=== PATIENT | male | born 1940 | race Caucasian/White ===

== ENCOUNTER 2023-06-14 20:45 | Emergency (ER) | payer MEDICARE, BC ==
[2023-06-14 21:31] LABS: BASOPHILS ABSOLUTE AUTO 0.09 K/uL (0.00-0.10); BASOPHILS PERCENT AUTO 1.4 % (0.1-1.3); EOSINOPHILS ABSOLUTE AUTO 0.38 K/uL (0.00-0.40); EOSINOPHILS PERCENT AUTO 5.9 % (0.0-5.4); HEMATOCRIT 36.8 % (38.4-49.7); HEMOGLOBIN 12.4 g/dL (12.9-16.9); IMMATURE GRAN PERCENT AUTO 0.2 % (0.0-0.7); LYMPHOCYTES ABSOLUTE AUTO 1.07 K/uL (0.8-3.3); LYMPHOCYTES PERCENT AUTO 16.5 % (11.4-47.7); MEAN CORPUSCULAR HEMOGLOBIN 31.8 pg (31.6-35.5); MEAN CORPUSCULAR HGB CONC 33.7 g/dL (31.6-35.5); MEAN CORPUSCULAR VOLUME 94.4 fL (81.4-99.0); MONOCYTES ABSOLUTE AUTO 0.58 K/uL (0.20-0.90); NEUTROPHILS ABSOLUTE AUTO 4.34 K/uL (1.0-7.6); PLATELET COUNT,PLT 166 K/uL (130-375); WHITE BLOOD CELL COUNT,WBC 6.5 K/uL (3.2-11.0)
[2023-06-14 21:36] LABS: IMMATURE GRAN ABSOLUTE AUTO 0.01 K/uL (0.00-0.23)
[2023-06-14 21:54] LABS: ALANINE AMINOTRANSFERASE,ALT 23 U/L (12-78); ALKALINE PHOSPHATASE 84 U/L (46-116); ANION GAP 12.5 mmol/L (5.0-14.0); ASPARTATE AMNIOTRANSFERASE,AST 19 U/L (15-37); BILIRUBIN TOTAL 0.5 mg/dL (0.2-1.0); BLOOD UREA NITROGEN,BUN 19 mg/dL (7-18); CALCIUM 7.8 mg/dL (8.5-10.1); CARBON DIOXIDE,CO2 27 mmol/L (21-32); CHLORIDE,CL 102 mmol/L (100-108); CREATININE 1.2 mg/dL (0.8-1.3); EST CRCL DRUG DOSING (CG) 47.46 mL/min; ESTIMATED GFR 60 mL/min (>60); GLUCOSE RANDOM 253 mg/dL (74-106); POTASSIUM,K 3.5 mmol/L (3.6-5.2); PROTEIN TOTAL,TP 5.9 g/dL (6.4-8.2); SODIUM,NA 138 mmol/L (140-148)
== END 2023-06-15 07:07 | disposition home or self-care (01) ==
LOC: JP.ED 20:45
DX: Z04.89 Encounter for examination and observation for other specified reasons (principal); Z87.891 Personal history of nicotine dependence; Z79.82 Long term (current) use of aspirin
CPT/HCPCS: 36415; 80053; 85025; 99283; 99285

== ENCOUNTER 2023-07-14 06:01 | Emergency (ER) | payer MEDICARE, BC ==
[2023-07-14 06:59] LABS: BASE EXCESS VENOUS 2.4 mm/L; BICARBONATE,VENOUS 27.7 mmol/L; CARBOXYHEMOGLOBIN 1.7 % (0.0-1.6); METHEMOGLOBIN 1.1 %; O2 SATURATION VENOUS 56.8; OXYHEMOGLOBIN 55.2 %; PCO2 VENOUS 47.9 mm/Hg; TOTAL HEMOGLOBIN 12.6 g/dL (13.5-18.0)
[2023-07-14 07:00] LABS: BASOPHILS ABSOLUTE AUTO 0.09 K/uL (0.00-0.10); BASOPHILS PERCENT AUTO 1.3 % (0.1-1.3); EOSINOPHILS ABSOLUTE AUTO 0.72 K/uL (0.00-0.40); EOSINOPHILS PERCENT AUTO 10.1 % (0.0-5.4); HEMATOCRIT 34.6 % (38.4-49.7); HEMOGLOBIN 11.9 g/dL (12.9-16.9); IMMATURE GRAN PERCENT AUTO 0.3 % (0.0-0.7); LYMPHOCYTES ABSOLUTE AUTO 1.16 K/uL (0.8-3.3); LYMPHOCYTES PERCENT AUTO 16.2 % (11.4-47.7); MEAN CORPUSCULAR HEMOGLOBIN 31.7 pg (31.6-35.5); MEAN CORPUSCULAR HGB CONC 34.4 g/dL (31.6-35.5); MEAN CORPUSCULAR VOLUME 92.3 fL (81.4-99.0); MONOCYTES PERCENT AUTO 8.4 % (3.3-12.6); NEUTROPHILS ABSOLUTE AUTO 4.56 K/uL (1.0-7.6); NEUTROPHILS PERCENT AUTO 63.7 % (40.0-78.1); PLATELET COUNT,PLT 180 K/uL (130-375); RED BLOOD CELL COUNT 3.75 M/uL (4.14-5.76); WHITE BLOOD CELL COUNT,WBC 7.2 K/uL (3.2-11.0)
[2023-07-14 07:04] LABS: IMMATURE GRAN ABSOLUTE AUTO 0.02 K/uL (0.00-0.23)
[2023-07-14 07:19] LABS: A/G RATIO 1.1 (1.2-2.2); ALANINE AMINOTRANSFERASE,ALT 26 U/L (12-78); ALKALINE PHOSPHATASE 93 U/L (46-116); ASPARTATE AMNIOTRANSFERASE,AST 22 U/L (15-37); BILIRUBIN TOTAL 0.6 mg/dL (0.2-1.0); BLOOD UREA NITROGEN,BUN 17 mg/dL (7-18); CALCIUM 7.9 mg/dL (8.5-10.1); CARBON DIOXIDE,CO2 29 mmol/L (21-32); CHLORIDE,CL 105 mmol/L (100-108); CREATININE 1.1 mg/dL (0.8-1.3); EST CRCL DRUG DOSING (CG) 54.92 mL/min; ESTIMATED GFR 67 mL/min (>60); GLUCOSE RANDOM 225 mg/dL (74-106); POTASSIUM,K 3.1 mmol/L (3.6-5.2); PROTEIN TOTAL,TP 5.7 g/dL (6.4-8.2); SODIUM,NA 140 mmol/L (140-148)
[2023-07-14 07:21] LABS: ANION GAP 9.1 mmol/L (5.0-14.0)
[2023-07-14] MEDS ORDERED: Thiamine 100 MG Tab PO ONE (07:23)
[2023-07-14] MEDS ORDERED: Multivitamins with Iron/Calcium/Folic Acid/Minerals Tab PO ONE (07:23)
[2023-07-14] MEDS ORDERED: Folic Acid 1 MG Tab PO ONE (07:23)
[2023-07-14] MEDS ORDERED: Potassium Chloride 20 MEQ Tab.ER PO ONE (07:44)
[2023-07-14 07:56] LABS: CORONAVIRUS COVID-19 NAA NEGATIVE (NEGATIVE); INFLUENZA A NAA NEGATIVE (NEGATIVE); INFLUENZA B NAA NEGATIVE (NEGATIVE); RESPIRATORY SYNCYTIAL VIR NAA NEGATIVE (NEGATIVE)
[2023-07-14 08:46] LABS: APPEARANCE,URINE SLIGHTLY CLOUDY (CLEAR); BILIRUBIN,URINE NEGATIVE (NEGATIVE); COLOR,URINE YELLOW (YELLOW); GLUCOSE,URINE 100 mg/dL (NEGATIVE); KETONES,URINE NEGATIVE (NEGATIVE); LEUKOCYTE ESTERASE,URINE NEGATIVE (NEGATIVE); NITRITE,URINE NEGATIVE (NEGATIVE); OCCULT BLOOD,URINE NEGATIVE (NEGATIVE); PH,URINE 5.5 (5.0-8.0); PROTEIN,URINE 30 mg/dL (NEGATIVE); UROBILINOGEN,URINE 0.2 EU/dL (0.2-1.0)
[2023-07-14 08:50] LABS: AMORPHOUS SEDIMENT,URINE NOT SEEN; BACTERIA,URINE NOT SEEN; EPITHELIAL CELLS,URINE NOT SEEN; MUCUS,URINE FEW; RBC,URINE 0-5 (0-5); WBC,URINE NOT SEEN (0-5)
[2023-07-14 08:51] LABS: AMPHETAMINES SCREEN, URINE NEGATIVE (NEGATIVE); BARBITURATE SCREEN,URINE NEGATIVE (NEGATIVE); BENZODIAZEPINES SCREEN,URINE NEGATIVE (NEGATIVE); METHADONE SCREEN, URINE NEGATIVE (NEGATIVE); METHAMPHETAMINES SCREEN, URINE NEGATIVE (NEGATIVE); OXYCODONE SCREEN,URINE NEGATIVE (NEGATIVE); PROPOXYPHENE SCREEN,URINE NEGATIVE (NEGATIVE); THC SCREEN,URINE 50 NG/ML NEGATIVE (NEGATIVE)
== END 2023-07-14 13:20 | disposition home or self-care (01) ==
LOC: MERGE 06:01 → JP.ED 06:01
DX: D64.9 Anemia, unspecified (principal); I10 Essential (primary) hypertension; E11.9 Type 2 diabetes mellitus without complications; F10.90 Alcohol use, unspecified, uncomplicated; G31.84 Mild cognitive impairment of uncertain or unknown etiology; Z95.2 Presence of prosthetic heart valve; Z59.00 Homelessness unspecified; Z87.891 Personal history of nicotine dependence; Z79.82 Long term (current) use of aspirin; Z79.4 Long term (current) use of insulin; Z79.899 Other long term (current) drug therapy; Z88.8 Allergy status to other drugs, medicaments and biological substances
CPT/HCPCS: 0241U; 36415; 70450; 80053; 80305; 80307; 81001; 82140; 82803; 82947; 85025; 86140; 99284; 99285; A9270

== ENCOUNTER 2023-07-18 12:59 | Emergency (ER) | payer MEDICARE, BC ==
[2023-07-18 15:14] LABS: APPEARANCE,URINE CLOUDY (CLEAR); BILIRUBIN,URINE NEGATIVE (NEGATIVE); COLOR,URINE YELLOW (YELLOW); GLUCOSE,URINE 100 mg/dL (NEGATIVE); KETONES,URINE NEGATIVE (NEGATIVE); LEUKOCYTE ESTERASE,URINE NEGATIVE (NEGATIVE); NITRITE,URINE NEGATIVE (NEGATIVE); OCCULT BLOOD,URINE NEGATIVE (NEGATIVE); PH,URINE 5.5 (5.0-8.0); PROTEIN,URINE TRACE mg/dL (NEGATIVE); UROBILINOGEN,URINE 0.2 EU/dL (0.2-1.0)
[2023-07-18 15:26] LABS: AMORPHOUS SEDIMENT,URINE RARE; BACTERIA,URINE RARE; EPITHELIAL CELLS,URINE RARE; MUCUS,URINE NOT SEEN; RBC,URINE 0-5 (0-5); WBC,URINE 0-5 (0-5)
[2023-07-18 16:09] LABS: BASOPHILS ABSOLUTE AUTO 0.09 K/uL (0.00-0.10); BASOPHILS PERCENT AUTO 1.5 % (0.1-1.3); EOSINOPHILS ABSOLUTE AUTO 0.17 K/uL (0.00-0.40); EOSINOPHILS PERCENT AUTO 2.9 % (0.0-5.4); HEMATOCRIT 37.3 % (38.4-49.7); HEMOGLOBIN 12.5 g/dL (12.9-16.9); IMMATURE GRAN PERCENT AUTO 0.2 % (0.0-0.7); LYMPHOCYTES ABSOLUTE AUTO 1.18 K/uL (0.8-3.3); LYMPHOCYTES PERCENT AUTO 19.8 % (11.4-47.7); MEAN CORPUSCULAR HEMOGLOBIN 31.6 pg (31.6-35.5); MEAN CORPUSCULAR HGB CONC 33.5 g/dL (31.6-35.5); MEAN CORPUSCULAR VOLUME 94.4 fL (81.4-99.0); MONOCYTES ABSOLUTE AUTO 0.49 K/uL (0.20-0.90); MONOCYTES PERCENT AUTO 8.2 % (3.3-12.6); NEUTROPHILS ABSOLUTE AUTO 4.02 K/uL (1.0-7.6); NEUTROPHILS PERCENT AUTO 67.4 % (40.0-78.1); PLATELET COUNT,PLT 192 K/uL (130-375); RED BLOOD CELL COUNT 3.95 M/uL (4.14-5.76)
[2023-07-18 16:10] LABS: IMMATURE GRAN ABSOLUTE AUTO 0.01 K/uL (0.00-0.23)
[2023-07-18 16:14] LABS: ANION GAP 2.6 mmol/L (5.0-14.0); CALCIUM 8.1 mg/dL (8.5-10.1); CREATININE 1.1 mg/dL (0.8-1.3); EST CRCL DRUG DOSING (CG) 50.09 mL/min; MAGNESIUM 1.7 mg/dL (1.8-2.4); POTASSIUM,K 4.4 mmol/L (3.6-5.2)
[2023-07-18] MEDS ORDERED: Magnesium Oxide 400 MG Tab PO ONE (16:17)
[2023-07-18] MEDS ORDERED: Calcium Carbonate/Vitamin D3 1500 MG-400 Units Tab PO ONE (16:19)
[2023-07-18] MEDS ORDERED: Magnesium Oxide 400 MG Tab ONE (16:51)
== END 2023-07-19 17:45 | disposition home or self-care (01) ==
LOC: JP.ED 12:59
DX: Z04.9 Encounter for examination and observation for unspecified reason (principal); Z59.00 Homelessness unspecified; E11.9 Type 2 diabetes mellitus without complications; Z79.4 Long term (current) use of insulin; Z79.82 Long term (current) use of aspirin; Z88.8 Allergy status to other drugs, medicaments and biological substances
CPT/HCPCS: 36415; 80048; 81001; 82947; 83735; 85025; 99281; 99285; A9270

== ENCOUNTER 2023-07-19 19:12 | Emergency (ER) | payer MEDICARE, BC ==
[2023-07-19 22:40] LABS: APPEARANCE,URINE SLIGHTLY CLOUDY (CLEAR); BILIRUBIN,URINE NEGATIVE (NEGATIVE); COLOR,URINE YELLOW (YELLOW); GLUCOSE,URINE NEGATIVE (NEGATIVE); KETONES,URINE NEGATIVE (NEGATIVE); LEUKOCYTE ESTERASE,URINE NEGATIVE (NEGATIVE); NITRITE,URINE NEGATIVE (NEGATIVE); OCCULT BLOOD,URINE NEGATIVE (NEGATIVE); PH,URINE 5.5 (5.0-8.0); PROTEIN,URINE NEGATIVE (NEGATIVE); UROBILINOGEN,URINE 0.2 EU/dL (0.2-1.0)
[2023-07-19 22:52] LABS: RBC,URINE 0-5 (0-5); WBC,URINE 0-5 (0-5)
[2023-07-19 22:53] LABS: AMORPHOUS SEDIMENT,URINE NOT SEEN; BACTERIA,URINE FEW; EPITHELIAL CELLS,URINE RARE; MUCUS,URINE RARE
== END 2023-07-20 11:21 | disposition home or self-care (01) ==
LOC: JP.ED 19:12
DX: E11.9 Type 2 diabetes mellitus without complications (principal); Z59.00 Homelessness unspecified; Z79.4 Long term (current) use of insulin; Z79.84 Long term (current) use of oral hypoglycemic drugs; Z88.8 Allergy status to other drugs, medicaments and biological substances
CPT/HCPCS: 81001; 99285

== ENCOUNTER 2023-07-21 14:58 | Emergency (ER) | payer MEDICARE, BC ==
[2023-07-21 15:26] LABS: BASOPHILS ABSOLUTE AUTO 0.07 K/uL (0.00-0.10); EOSINOPHILS ABSOLUTE AUTO 0.11 K/uL (0.00-0.40); EOSINOPHILS PERCENT AUTO 1.5 % (0.0-5.4); HEMATOCRIT 37.8 % (38.4-49.7); HEMOGLOBIN 12.7 g/dL (12.9-16.9); IMMATURE GRAN PERCENT AUTO 0.3 % (0.0-0.7); LYMPHOCYTES ABSOLUTE AUTO 0.97 K/uL (0.8-3.3); LYMPHOCYTES PERCENT AUTO 13.2 % (11.4-47.7); MEAN CORPUSCULAR HEMOGLOBIN 31.6 pg (31.6-35.5); MEAN CORPUSCULAR HGB CONC 33.6 g/dL (31.6-35.5); MONOCYTES ABSOLUTE AUTO 0.66 K/uL (0.20-0.90); NEUTROPHILS ABSOLUTE AUTO 5.51 K/uL (1.0-7.6); PLATELET COUNT,PLT 150 K/uL (130-375); RED BLOOD CELL COUNT 4.02 M/uL (4.14-5.76); WHITE BLOOD CELL COUNT,WBC 7.3 K/uL (3.2-11.0)
[2023-07-21 15:27] LABS: IMMATURE GRAN ABSOLUTE AUTO 0.02 K/uL (0.00-0.23)
[2023-07-21 15:57] LABS: CALCIUM 7.9 mg/dL (8.5-10.1); EST CRCL DRUG DOSING (CG) 53.25 mL/min; TSH ULTRASENSITIVE 1.961 uIU/mL (0.358-3.740)
[2023-07-21] MEDS ORDERED: 50% Dextrose in Water 50 ML Syringe IVPUSH PRN (18:14)
[2023-07-21] MEDS ORDERED: Glucagon,Human Recombinant 1 MG Vial IM PRN (18:14)
[2023-07-21] MEDS ORDERED: Insulin Lispro 100 Unit/ML 3 ML KwikPen SUBCUT SCH (18:15)
[2023-07-21] MEDS: Amylase/Lipase/Protease 12,000 Unit Cap.CR PO SCH (21:00)
[2023-07-22] MEDS ORDERED: UBIDECARENONE 100 MG PO SCH ×2 (09:00)
[2023-07-22] MEDS: Amylase/Lipase/Protease 12,000 Unit Cap.CR PO SCH ×3 (09:02→21:40)
[2023-07-22] MEDS: Hydrochlorothiazide 12.5 MG Cap PO SCH (09:03)
[2023-07-22] MEDS: Tamsulosin 0.4 MG Cap.ER PO SCH (09:04)
[2023-07-22] MEDS: Aspirin 81 MG Tab.EC PO SCH (09:04)
[2023-07-22] MEDS: Multivitamins with Iron/Calcium/Folic Acid/Minerals Tab PO SCH (09:04)
[2023-07-22] MEDS: Cholecalciferol (Vitamin D3) 25 MCG Tab PO SCH (09:05)
[2023-07-22] MEDS: Losartan 50 MG Tab PO SCH (09:17)
[2023-07-22] MEDS ORDERED: Insulin Glargine,Human Rec. Analog 100 Units/ML 3 ML Pen SUBCUT SCH ×2 (12:00)
[2023-07-22] MEDS: Insulin Lispro 100 Unit/ML 3 ML KwikPen SUBCUT PRN ×2 (12:57→17:05)
[2023-07-23] MEDS: Tamsulosin 0.4 MG Cap.ER PO SCH (08:35)
[2023-07-23] MEDS: Amylase/Lipase/Protease 12,000 Unit Cap.CR PO SCH (08:35)
[2023-07-23] MEDS: Multivitamins with Iron/Calcium/Folic Acid/Minerals Tab PO SCH (08:36)
[2023-07-23] MEDS: Aspirin 81 MG Tab.EC PO SCH (08:36)
[2023-07-23] MEDS: Insulin Lispro 100 Unit/ML 3 ML KwikPen SUBCUT PRN (08:37)
[2023-07-23] MEDS: Cholecalciferol (Vitamin D3) 25 MCG Tab PO SCH (08:38)
[2023-07-23] MEDS: Hydrochlorothiazide 12.5 MG Cap PO SCH (08:39)
[2023-07-23] MEDS: Losartan 50 MG Tab PO SCH (08:42)
== END 2023-07-23 09:56 | disposition home or self-care (01) ==
LOC: JP.ED 14:58
DX: F03.A18 Unspecified dementia, mild, with other behavioral disturbance (principal); E11.9 Type 2 diabetes mellitus without complications; Z87.891 Personal history of nicotine dependence; Z79.82 Long term (current) use of aspirin; Z79.4 Long term (current) use of insulin; Z79.899 Other long term (current) drug therapy; Z88.8 Allergy status to other drugs, medicaments and biological substances
CPT/HCPCS: 36415; 80048; 82947; 84443; 85025; 99284; A9270; J1815